=== PATIENT | female | born 1965 | race Caucasian/White ===

== ENCOUNTER 2017-12-17 11:17 | Emergency (ER) | payer OTHER ==
--- NOTE | 2017-12-17 11:31 | ER Document Report ---
HPI - HPI Patient complains to provider of: Cough Onset: Other - Friday Pain Level: 4 Context: 52-year-old smoker complaining of cough that is getting more persistent and worse since Friday. No fever or chills. It is nonproductive. No history of asthma or COPD. No chest pain or shortness of breath. She did get her flu shot last week. The [facility] here to be seen because they did not have a provider. Associated Symptoms: None Exacerbated by: Denies Relieved by: Denies Similar symptoms previously: No Recently seen / treated by doctor: No - ROS ROS below otherwise negative: Yes Systems Reviewed and Negative: Yes All other systems reviewed and negative Past Medical History - General Information source: Patient - Social History Smoking Status: Current Every Day Smoker Lives with: Family Family History: Reviewed & Not Pertinent - Medical History Medical History: Negative Surgical Hx: Negative Vertical Provider Document - CONSTITUTIONAL Agree With Documented VS: Yes Exam Limitations: No Limitations - INFECTION CONTROL TRAVEL OUTSIDE OF THE [place] IN LAST 30 DAYS: No - HEENT HEENT: Pharyngeal Erythema - Minimal - NECK Neck: Supple. negative: Lymphadenopathy-Left, Lymphadenopathy-Right - RESPIRATORY Respiratory: Breath Sounds Normal, No Respiratory Distress - CARDIOVASCULAR Cardiovascular: Regular Rate, Regular Rhythm - MUSCULOSKELETAL/EXTREMETIES Musculoskeletal/Extremeties: MAEW - NEURO Level of Consciousness: Awake, Alert - DERM Integumentary: No Rash Course - Re-evaluation Re-evalutation: 12/17/17 12:18 Patient had to be taken to the main side radiology department and the images of not been done yet, and the delay in disposition. She has not return to the emergency department. 12/17/17 12:36 Prelim chest x-ray is negative, lungs continue to be clear. 12/17/17 13:04 Final x-ray report per radiologist is negative. Nurse did not report to me a diastolic of 103 at her discharge. I suspect that that is an incorrect diastolic pressure since her first blood pressure was 55. - Vital Signs Vital signs: Temp Pulse Resp BP Pulse Ox 98.3 F 84 24 H 128/55 H 95 12/17/17 11:23 12/17/17 11:23 12/17/17 11:23 12/17/17 11:23 12/17/17 11:23 Discharge - Discharge Clinical Impression: Bronchitis Condition: Good Disposition: HOME, SELF-CARE Instructions: Bronchitis ([facility]), Inhaled Bronchodilators ([facility]), Stop Smoking ( [facility]), Tessalon Perles ([facility]) Additional Instructions: Drink plenty of fluids Stop smoking Tessalon Perles 4 times a day as needed for the cough Albuterol metered-dose inhaler 2 puffs every 3-4 hours for the cough Return to the emergency room for any chest pain shortness of breath fever chills Prescriptions: Albuterol Sulfate [Proair HFA Inhalation Aerosol 8.5 gm MDI] 2 puff IH Q3HP PRN #1 [id number].[email or web address].[email or web address] PRN Reason: Benzonatate [Tessalon Perles 100 mg Capsule] 100 mg PO QIDP PRN #40 capsule PRN Reason: Forms: Return to Work
[2017-12-17] MEDS ORDERED: IPRATROPIUM/ALBUTEROL 0.5-2.5 MG/3 ML AMPUL NEB ONE (11:37)
[2017-12-17] MEDS ORDERED: BENZONATATE 100 MG CAPSULE PO ONE (11:40)
--- NOTE | 2017-12-17 12:44 | RADIOLOGY REPORT (SQ) ---
EXAM DESCRIPTION: CHEST 2 VIEWS COMPLETED DATE/TIME: 12/17/2017 12:33 pm REASON FOR STUDY: cough COMPARISON: None. EXAM PARAMETERS: NUMBER OF VIEWS: two views TECHNIQUE: Digital Frontal and Lateral radiographic views of the chest acquired. RADIATION DOSE: NA LIMITATIONS: none FINDINGS: LUNGS AND PLEURA: No opacities, masses or pneumothorax. No pleural effusion. MEDIASTINUM AND HILAR STRUCTURES: No masses or contour abnormalities. HEART AND VASCULAR STRUCTURES: Heart normal size. No evidence for failure. BONES: There is some minimal compression of the superior endplate of 1 of the lower thoracic spine ve rtebral bodies which is age indeterminate HARDWARE: None in the chest. OTHER: No other significant finding. IMPRESSION: NO ACUTE RADIOGRAPHIC FINDING IN THE CHEST. TECHNICAL DOCUMENTATION: JOB ID: [id number] [employer]- All Rights Reserved Reading location - IP/workstation name: [email or web address]
[2017-12-17 12:45] VITALS: BP 127/103
== END 2017-12-17 12:45 | disposition home or self-care (01) ==
LOC: ER 11:17
DX: J40 Bronchitis, not specified as acute or chronic (principal); R05 Cough; F17.200 Nicotine dependence, unspecified, uncomplicated
CPT/HCPCS: 94640; 99283; 71046; J7620

== ENCOUNTER 2018-03-09 20:01 | Emergency (ER) | payer OTHER ==
[2018-03-09 20:27] VITALS: BP 129/68
== END 2018-03-09 21:41 | disposition left against medical advice (07) ==
LOC: ER 20:01
DX: Z53.21 Procedure and treatment not carried out due to patient leaving prior to being seen by health care provider (principal)